=== PATIENT | female | born 1955 | race African-American/Black ===

== ENCOUNTER 2017-09-12 06:33 | Inpatient (IN) | payer OTHER ==
[2017-09-12] VITALS (7 sets, daily range): BP systolic 163–185; BP diastolic 84–109
[~2017-09-12] VITALS: Ht 165.1 cm; Wt 103.4 kg
[2017-09-12] MEDS ORDERED: IPRATROPIUM/ALBUTEROL 0.5-3(2.5)MG/3ML NEB HHN ONE (08:00)
[2017-09-12] MEDS ORDERED: METHYLPREDNISOLONE SOD SUCC 125 MG/2 ML VIAL IV ONE (08:00)
[2017-09-12] MEDS ORDERED: HYDROCODONE/ACETAMINOPHEN 5/325MG TABLET PO PRN (08:15)
[2017-09-12] MEDS ORDERED: ONDANSETRON HCL 4MG/2ML VIAL IV PRN (08:15)
[2017-09-12] MEDS ORDERED: HYDROCODONE/ACETAMINOPHEN 10/325MG TABLET PO PRN (08:15)
[2017-09-12] MEDS ORDERED: NA PHOS,M-B/NA PHOS,DI-BA ENEMA 118ML PR PRN (08:15)
[2017-09-12] MEDS ORDERED: DIPHENHYDRAMINE 50MG/ML VIAL IV PRN (08:15)
[2017-09-12] MEDS ORDERED: MORPHINE SULFATE 2 MG/ML CPJ (NOT FOR IM USE) IV PRN (08:15)
[2017-09-12] MEDS ORDERED: GUAIFENESIN 200MG/10ML SUGAR FREE UDC PO PRN (08:15)
[2017-09-12] MEDS ORDERED: DOCUSATE SODIUM 100MG CAPSULE PO PRN (08:15)
[2017-09-12] MEDS ORDERED: LORAZEPAM 2MG/ML CPJ IV PRN (08:15)
[2017-09-12] MEDS ORDERED: MAGNESIUM/ALUMINUM HYDROXIDE/SIMETHICONE 30ML UDC PO PRN (08:15)
[2017-09-12 08:19] LABS: PARTIAL THROMBOPLASTIN TIME 25.1 sec (23.4-31.0); PROTHROMBIN TIME 10.4 sec (9.4-11.6)
[2017-09-12 08:20] LABS: CHLORIDE 107 mEq/L (98-107)
[2017-09-12 08:22] LABS: BASOPHILS % 0.3 % (0.0-2.0); EOSINOPHILS % 0.8 % (0.0-5.0); HEMATOCRIT. 42.7 % (36.0-48.0); HEMOGLOBIN. 14.2 g/dL (12.0-16.0); LYMPHOCYTES % 12.1 % (20.0-50.0); MEAN CORPUSCULAR HEMOGLOBIN 26.5 pg (28.0-32.0); MEAN CORPUSCULAR VOLUME 79.7 fL (81.0-99.0); MEAN PLATELET VOLUME 8.6 fl (7.4-10.4); MONOCYTES % 8.8 % (2.0-8.0); PLATELET 248 x1000/uL (130-400); RED BLOOD CELL COUNT 5.36 mill/uL (4.2-5.4); RED CELL DISTRIBUTION WIDTH 14.8 % (11.6-14.6)
[2017-09-12] MEDS: ASPIRIN 81MG EC TABLET PO SCH (09:22)
[2017-09-12] MEDS: CLONIDINE 0.1MG TABLET PO PRN ×2 (09:22→20:25)
[2017-09-12] MEDS: ENOXAPARIN 30MG/0.3ML SYR SUBCUT SCH ×2 (11:00→12:06)
[2017-09-12] MEDS ORDERED: HYDR25TA PO (11:19)
[2017-09-12] MEDS ORDERED: AMLO10TA80 PO (11:19)
[2017-09-12] MEDS ORDERED: CLON0.2T PO ×3 (11:19)
[2017-09-12] MEDS ORDERED: ACETAMINOPHEN 325MG TABLET PO PRN (11:30)
[2017-09-12] MEDS: LEVOFLOXACIN 500MG PREMIX 100 ML IV SCH (11:55)
[2017-09-12] MEDS: METHYLPREDNISOLONE SOD SUCC 125 MG/2 ML VIAL IV SCH ×3 (11:55→21:44)
[2017-09-12] MEDS: IPRATROPIUM/ALBUTEROL 0.5-3(2.5)MG/3ML NEB INH PRN ×3 (12:44→21:12)
[2017-09-12] MEDS: AMLODIPINE 10MG TABLET PO SCH (21:43)
[2017-09-13] MEDS: IPRATROPIUM/ALBUTEROL 0.5-3(2.5)MG/3ML NEB HHN SCH ×3 (01:00→20:53)
[2017-09-13] MEDS: MORPHINE SULFATE 4 MG/ML CPJ (NOT FOR IM USE) IV PRN ×3 (03:06→18:35)
[2017-09-13 04:00] VITALS: BP 153/95
[2017-09-13] MEDS: METHYLPREDNISOLONE SOD SUCC 125 MG/2 ML VIAL IV SCH ×3 (05:24→18:16)
[2017-09-13 05:31] LABS: HEMATOCRIT. 40.7 % (36.0-48.0); HEMOGLOBIN. 13.4 g/dL (12.0-16.0); MEAN CORPUSCULAR HEMOGLOBIN 26.3 pg (28.0-32.0); MEAN CORPUSCULAR VOLUME 80.2 fL (81.0-99.0); PLATELET 220 x1000/uL (130-400); RED BLOOD CELL COUNT 5.08 mill/uL (4.2-5.4); RED CELL DISTRIBUTION WIDTH 14.9 % (11.6-14.6)
[2017-09-13 07:23] LABS: CHLORIDE 109 mEq/L (98-107)
[2017-09-13 07:58] LABS: HDL CHOLESTEROL 87 mg/dL (40-59); LDL CHOLESTEROL 89 mg/dL (5-100); T4 FREE 0.86 ng/dL (0.76-1.46)
[2017-09-13 08:00] VITALS: BP 167/98
[2017-09-13] MEDS: AMLODIPINE 10MG TABLET PO SCH (09:58)
[2017-09-13] MEDS: ASPIRIN 81MG EC TABLET PO SCH (09:58)
[2017-09-13] MEDS: LEVOFLOXACIN 500MG PREMIX 100 ML IV SCH (10:35)
[2017-09-13] MEDS: ENOXAPARIN 30MG/0.3ML SYR SUBCUT SCH (10:39)
[2017-09-13 11:30] VITALS: BP 169/73
[2017-09-13 12:03] LABS: PLATELET ESTIMATE NORMAL
[2017-09-13] MEDS ORDERED: MONTELUKAST SODIUM 10MG TABLET PO SCH (17:00)
[2017-09-13] MEDS ORDERED: CLONIDINE 0.2MG TABLET PO SCH (17:00)
[2017-09-13 20:00] VITALS: BP 158/93
[2017-09-13] MEDS: CLONIDINE 0.1MG TABLET PO PRN (20:15)
[2017-09-13 20:47] VITALS: BP 166/98
== END 2017-09-13 21:15 | disposition short-term general hospital (02) | DRG 189 ==
LOC: EDBEDREQ 07:56 → ENRESERV 08:13 → ER 08:31 → 5WST 09:00
PROVIDERS: ADMIT Internal Medicine; ATTEND Internal Medicine
DX: J96.00 Acute respiratory failure, unspecified whether with hypoxia or hypercapnia (principal); J18.9 Pneumonia, unspecified organism; I11.0 Hypertensive heart disease with heart failure; R65.10 Systemic inflammatory response syndrome (SIRS) of non-infectious origin without acute organ dysfunction; I50.9 Heart failure, unspecified; J44.0 Chronic obstructive pulmonary disease with (acute) lower respiratory infection; J44.1 Chronic obstructive pulmonary disease with (acute) exacerbation; E86.0 Dehydration; E78.00 Pure hypercholesterolemia, unspecified; F17.210 Nicotine dependence, cigarettes, uncomplicated; E66.9 Obesity, unspecified; Z79.899 Other long term (current) drug therapy; Z82.49 Family history of ischemic heart disease and other diseases of the circulatory system; Z83.3 Family history of diabetes mellitus; Z68.37 Body mass index [BMI] 37.0-37.9, adult; Z88.6 Allergy status to analgesic agent
CPT/HCPCS: 36415; 71045; 80053; 80061; 83690; 84439; 84443; 84484; 85025; 85610; 85730; 93005; 94640; J1650; J1956; J2270; J2930; J7050; J7620